=== PATIENT | male | born 1945 | race Caucasian/White ===

== ENCOUNTER → 2023-06-04 07:31 | Outpatient (REF) | payer MEDICARE, OTHER, SELFPAY ==
[2023-06-04 09:04] LABS: ALT (SGPT) 29 U/L (0-50); AST (SGOT) 30 U/L (17-59); Albumin 3.8 g/dl (3.5-5.0); Alkaline Phosphatase 100 U/L (38-126); Blood Urea Nitrogen 21 mg/dl (9-20); Calcium 9.2 mg/dl (8.4-10.2); Carbon Dioxide 27 mmol/L (22-30); Chloride 105 mmol/L (98-107); Glucose 105 mg/dl (70-99); HDL Cholesterol 63 mg/dl; LDL Cholesterol, Calculated 60 mg/dl; Potassium 4.3 mmol/L (3.5-5.1); Sodium 136 mmol/L (135-145); Total Bilirubin 0.8 mg/dl (0.2-1.3); Total Cholesterol 144 mg/dl (50-199); Total Protein 6.6 g/dl (6.3-8.2); Triglyceride 107 mg/dl (10-149); Very Low Density Lipoprotein 21 mg/dl (0-30); eGFR > 60.00
== END ==
LOC: REG 07:31
PROVIDERS: ATTENDING PHYSICIAN Nuclear Medicine Nuclear Cardiology; FAMILY PHYSICIAN Family Medicine
DX: E78.00 Pure hypercholesterolemia, unspecified (principal)
CPT/HCPCS: 36415; 80053; 80061

== ENCOUNTER → 2023-06-12 17:11 | Outpatient (REF) | payer MEDICARE, OTHER, SELFPAY | LOC: RAD 17:11 | PROVIDERS: ATTENDING PHYSICIAN Family Medicine | DX: J69.0 Pneumonitis due to inhalation of food and vomit (principal) | CPT/HCPCS: 71046 ==

== ENCOUNTER → 2023-07-02 07:38 | Outpatient (REF) | payer MEDICARE, OTHER, SELFPAY | LOC: DHCBC/DCA 07:38 | PROVIDERS: ATTENDING PHYSICIAN Nuclear Medicine Nuclear Cardiology; FAMILY PHYSICIAN Family Medicine | DX: I25.10 Atherosclerotic heart disease of native coronary artery without angina pectoris (principal); R07.89 Other chest pain; Z95.5 Presence of coronary angioplasty implant and graft; E78.00 Pure hypercholesterolemia, unspecified | CPT/HCPCS: 78452; 93017; A9500 ==

== ENCOUNTER → 2023-07-06 06:36 | Day surgery (SDC) | payer MEDICARE, OTHER, SELFPAY | LOC: GI 06:36 | PROVIDERS: ATTENDING PHYSICIAN Internal Medicine Gastroenterology; FAMILY PHYSICIAN Family Medicine | DX: Z12.11 Encounter for screening for malignant neoplasm of colon (principal); Z86.010 Personal history of colon polyps; R19.4 Change in bowel habit; K64.8 Other hemorrhoids; D12.3 Benign neoplasm of transverse colon | CPT/HCPCS: 45380; 88305 ==

== ENCOUNTER → 2023-07-23 10:58 | Outpatient (REF) | payer MEDICARE, OTHER, SELFPAY | LOC: DHCBS HW 10:58 | PROVIDERS: ATTENDING PHYSICIAN Nuclear Medicine Nuclear Cardiology; FAMILY PHYSICIAN Family Medicine | DX: I25.10 Atherosclerotic heart disease of native coronary artery without angina pectoris (principal); R07.89 Other chest pain; Z95.5 Presence of coronary angioplasty implant and graft; E78.00 Pure hypercholesterolemia, unspecified | CPT/HCPCS: 93306 ==

== ENCOUNTER → 2024-01-30 07:42 | Outpatient (REF) | payer MEDICARE, OTHER, SELFPAY ==
[2024-01-30 09:17] LABS: ALT (SGPT) 33 U/L (0-50); AST (SGOT) 29 U/L (17-59); Albumin 4.1 g/dl (3.5-5.0); Alkaline Phosphatase 89 U/L (38-126); Blood Urea Nitrogen 26 mg/dl (9-20); Calcium 9.6 mg/dl (8.4-10.2); Carbon Dioxide 31 mmol/L (22-30); Chloride 106 mmol/L (98-107); Glucose 113 mg/dl (70-99); HDL Cholesterol 65 mg/dl; LDL Cholesterol, Calculated 65 mg/dl; Potassium 4.8 mmol/L (3.5-5.1); Sodium 146 mmol/L (135-145); Total Bilirubin 0.8 mg/dl (0.2-1.3); Total Cholesterol 150 mg/dl (50-199); Total Protein 6.8 g/dl (6.3-8.2); Triglyceride 104 mg/dl (10-149); Very Low Density Lipoprotein 20 mg/dl (0-30); eGFR > 60.00
== END ==
LOC: REG 07:42
PROVIDERS: ATTENDING PHYSICIAN Nuclear Medicine Nuclear Cardiology; FAMILY PHYSICIAN Family Medicine
DX: I70.0 Atherosclerosis of aorta (principal); E78.00 Pure hypercholesterolemia, unspecified
CPT/HCPCS: 36415; 80053; 80061

== ENCOUNTER 2024-05-21 06:24 | Day surgery (SDC) | payer MEDICARE, OTHER, SELFPAY | END 2024-05-21 09:48 | disposition home or self-care (01) | LOC: GI 06:24 | PROVIDERS: ATTENDING PHYSICIAN Internal Medicine Gastroenterology; FAMILY PHYSICIAN Family Medicine | DX: K22.70 Barrett's esophagus without dysplasia (principal); K44.9 Diaphragmatic hernia without obstruction or gangrene | CPT/HCPCS: 43239; 88305 ==

== ENCOUNTER → 2024-06-30 10:16 | Outpatient (REF) | payer MEDICARE, OTHER, SELFPAY ==
[2024-06-30 11:24] LABS: % Basophils 0.6 % (0-2); % Eosinophils 7.1 % (0-6); % Immature Granulocytes 0.3 % (0-0.5); % Lymphocytes 26.1 % (20.5-51.1); % Monocytes 13.2 % (1.7-9.3); % Neutrophils 52.7 % (42.2-75.2); Absolute Eosinophils 0.5 10^3/uL (0-0.7); Absolute Lymphocytes 1.8 10^3/uL (1.2-3.4); Absolute Monocytes 0.9 10^3/uL (0.1-0.6); Absolute Neutrophils 3.6 10^3/uL (1.4-6.5); Hematocrit 44.9 % (39.0-52.0); Hemoglobin 15.1 g/dL (13.0-18.0); Mean Corp Hgb Conc. 33.6 g/dL (33.0-37.0); Mean Corpuscular Hgb 31.4 pg (27.0-31.0); Mean Corpuscular Volume 93.3 fL (80.0-94.0); Mean Platelet Volume 9.9 fL (7.4-10.4); Nucleated Red Blood Cells % 0 % (-); Platelet Count 161 10^3/uL (130-400); Red Blood Cell Count 4.81 10^6/uL (4.70-6.10); Red Cell Dist. Width 12.6 % (11.5-14.5); White Blood Cell Count 6.7 10^3/uL (4.8-10.8)
[2024-06-30 12:40] LABS: PSA, Total - Screen 0.73 ng/ml (0.0-4.0)
[2024-06-30 12:59] LABS: Vitamin B12 497 pg/ml (239-931)
[2024-07-03 01:37] LABS: Vitamin B6 Results 18.9 nmol/L (20.0-125.0)
== END ==
LOC: REG 10:16
PROVIDERS: ATTENDING PHYSICIAN Family Medicine; REFERRING PHYSICIAN Nuclear Medicine Nuclear Cardiology
DX: Z00.00 Encounter for general adult medical examination without abnormal findings (principal); G47.33 Obstructive sleep apnea (adult) (pediatric); I10 Essential (primary) hypertension; K21.9 Gastro-esophageal reflux disease without esophagitis; I70.0 Atherosclerosis of aorta; Z12.5 Encounter for screening for malignant neoplasm of prostate; Z79.899 Other long term (current) drug therapy
CPT/HCPCS: 36415; 82607; 84207; 85025; G0103

== ENCOUNTER → 2024-07-22 07:46 | Outpatient (REF) | payer MEDICARE, OTHER, SELFPAY | LOC: HWRCS 07:46 | PROVIDERS: ATTENDING PHYSICIAN Nuclear Medicine Nuclear Cardiology; FAMILY PHYSICIAN Family Medicine | DX: I10 Essential (primary) hypertension (principal); I70.0 Atherosclerosis of aorta; R07.89 Other chest pain; Z82.49 Family history of ischemic heart disease and other diseases of the circulatory system | CPT/HCPCS: 93306 ==

== ENCOUNTER → 2024-07-25 15:20 | Outpatient (REF) | payer MEDICARE, OTHER, SELFPAY | LOC: RAD 15:20 | PROVIDERS: ATTENDING PHYSICIAN Family Medicine | DX: R07.89 Other chest pain (principal); R06.02 Shortness of breath | CPT/HCPCS: 71260; Q9967 ==

== ENCOUNTER 2024-07-27 05:59 | Inpatient (IN) | payer MEDICARE, OTHER, SELFPAY ==
[2024-07-27] VITALS (20 sets, daily range): BP systolic 130–172; BP diastolic 67–96; BMI 30.3; BMI 28.6
[2024-07-27 04:01] LABS: % Basophils 0.6 % (0-2); % Eosinophils 4.8 % (0-6); % Immature Granulocytes 0.3 % (0-0.5); % Lymphocytes 28.1 % (20.5-51.1); % Monocytes 11.1 % (1.7-9.3); % Neutrophils 55.1 % (42.2-75.2); Absolute Eosinophils 0.4 10^3/uL (0-0.7); Absolute Monocytes 0.8 10^3/uL (0.1-0.6); Hematocrit 42.5 % (39.0-52.0); Hemoglobin 15.1 g/dL (13.0-18.0); Mean Corp Hgb Conc. 35.5 g/dL (33.0-37.0); Mean Corpuscular Hgb 31.8 pg (27.0-31.0); Mean Corpuscular Volume 89.5 fL (80.0-94.0); Mean Platelet Volume 9.7 fL (7.4-10.4); Nucleated Red Blood Cells % 0 % (-); Platelet Count 157 10^3/uL (130-400); Red Blood Cell Count 4.75 10^6/uL (4.70-6.10); White Blood Cell Count 7.2 10^3/uL (4.8-10.8)
--- NOTE | 2024-07-27 04:13 | ED.GENMED ---
History of Present Illness
General
Chief Complaint: Chest Pain
Source: patient
Exam Limitations: none
Time Seen by Provider: 07/27/24 04:01
History of Present Illness
History of Present Illness:
See MDM
Past History
Past History
ED Past Medical History: CAD, GERD (Eyelid hernia, Aquino's esophagus), HTN, Hypercholesterolemia, Other (Kidney stones) and Other (Obstructive sleep apnea)
ED Past Surgical History: Cardiac (PTCA 05/24/17, 05/25/17), Orthopedic (Left hand trauma repair) and Urological (Lithotripsy for kidney stone removal)
Social History
Tobacco: Former smoker
Alcohol: Occasional
Personal:
Living: with family
Employment: Employed
Family History
Family History: Hypertension and CAD
Phy Exam
Physical Exam
Physical Exam:
See MDM
Scores
Heart Score for Chest Pain Patients
STEMI patient?: No
History: Highly Suspicious
ECG: Nonspecific Repolarization
Age: >/= 65 years
Risk Factors: >/= 3 Risk Factors or History of CAD
Troponin: >1 - <3 x Normal Limit
Heart Score for Chest Pain Patients: 8
Heart Score Risk: 72.7 % MACE over next 6 weeks
Course
Orders/Labs/Results
Orders:
Orders
07/27/24 03:18
Electrocardiogram (*1) Urgent
Reason for Study: Chest Pain
EKG- Treatment ONCE
07/27/24 03:46
CMP [Comprehensive Metabolic Panel] Urgent
Complete Blood Count/With Diff Urgent
Troponin I Urgent
07/27/24 04:13
Consult Cardiology [CARDIOLOGY CONSULT] Urgent
Consulting Provider: Manish Gabriel
Was physician already notified: Yes
07/27/24 04:32
EKG- Treatment ONCE
07/27/24 04:45
Aspirin Chewable [Low Strength Aspirin] 324 mg PO NOW STA
07/27/24 06:45
Electrocardiogram (*1) Urgent
Reason for Study: Chest Pain
Troponin I Urgent
Abnormal Lab Results
07/27/24
03:46
MCH 31.8 H pg
(27.0-31.0)
Absolute Monos (auto) 0.8 H 10^3/uL
(0.1-0.6)
Monocytes % 11.1 H %
(1.7-9.3)
Chloride 108 H mmol/L
(98-107)
BUN 21 H mg/dl
(9-20)
Glucose 118 H mg/dl
(70-99)
Alkaline Phosphatase 140 H U/L
(38-126)
Troponin I 0.081 H* ng/ml
07/27/24 03:46
07/27/24 03:46
Vital Signs
Initial and Last Documented VS:
Initial Vital Signs
Pulse Resp BP Pulse Ox
59 10 159/75 97
07/27/24 03:31 07/27/24 03:31 07/27/24 03:31 07/27/24 03:31
Last Documented Vital Signs
Pulse Resp BP Pulse Ox
49 16 137/70 96
07/27/24 04:20 07/27/24 04:20 07/27/24 04:20 07/27/24 04:20
MDM/Problems Addressed
Differential Diagnosis Includes:
HPI and MDM Narrative:
79-year-old male presenting for evaluation of exertional dyspnea. He noted the symptoms when he woke up this morning. Patient states he woke up to go to the bathroom and developed shortness of breath for several hours. He states this has been
progressive over the past several months. He does follow with cardiology and has had outpatient testing performed. He is due for stress test today.
Will discuss case with cardiology
Physical exam
General: Well appearing and non-toxic
HEENT: protecting airway
Neck: appears supple
CV: No evidence of cyanosis. Regular rate and rhythm
Resp: No accessory muscle use
Abd: Non-distended
Extremities: No deformities
Neuro: alert
Psych: Normal affect
Skin: Intact
Problems Addressed including Acute and Chronic Conditions affecting care:
1. Exertional dyspnea
Acuity: acute
Prognosis: stable
Details: Will obtain troponin. It appears patient has been having the same symptoms for weeks but it is intermittent
Updates
Case discussed with cardiology. We discussed admitting for cardiology evaluation and possible cath or going home for his scheduled stress test on Sunday
Troponin found to be elevated. Will give aspirin and admit
Differential Diagnosis (but not limited to): Coronary artery disease, ACS
Testing considered: Chest x-ray
Drug therapy (if applicable): OTC meds, please see d/c instruction regarding Rx drugs
Amount and/or Complexity of Data Reviewed
Clinical info obtained from: Patient
External data reviewed: N/A
Labs I independently reviewed (but not limited to): Elevated troponin
Radiology: N/A
Pulse Ox: not hypoxic
EKG independently reviewed: Sinus rhythm, left axis, no STEMI
Ventilation Mechanic: Sinus rhythm
Critical Care: N/A
Risk of Complication:
Social Determinants of health: Good social support
Discussed with other providers: Hospitalist, opener verifier packer customs
Escalation of Care includes Admit/Obs: Given concern for NSTEMI, will admit
Occasional wrong word or 'sound a like' substitutions may have occurred due to the inherent limitations of voice recognition software. Read the chart carefully and recognize, using context, where substitutions have occurred.
*Critical Care Note
Total Time (30-74mins, 75-104mins- exclusive of procedures): Not Applicable
ED Attending Note
-
Portions of this chart may have been created with voice recognition software.� Occasional wrong word or��sound alike� substitutions may have occurred due to the inherent limitations of voice recognition software.
Discharge Plan
Departure
Patient Disposition: Admit
Date of Disposition: 07/27/24
Time of Disposition: 04:48
Admit to: Telemetry
Presentation/result/management discussed w/ accepting MD/DO: Hospitalist
Discharge Problem:
Non-ST elevation [place] (NSTEMI)
Prescriptions:
No Action
aspirin [Aspir-Low] 81 MG tablet,delayed release (DR/EC)
81 mg PO DAILY
atorvastatin 80 MG tablet
80 mg PO QPM Qty: 30 3RF
metoprolol succinate 50 MG tablet extended release 24 hr
25 mg PO DAILY
clopidogrel 75 MG tablet
75 mg PO DAILY Qty: 90 3RF
pantoprazole 40 MG tablet,delayed release (DR/EC)
40 mg PO DAILY Qty: 90 3RF
Referrals:
Osmany Silva MD [Family Provider] -
Interventions
Interventions:
ED- Cardiac Assessment Last Done: 07/27/24 04:38
Discharge Date and Time
Print Language: KENYAN
[2024-07-27 04:18] LABS: ALT (SGPT) 35 U/L (0-50); AST (SGOT) 31 U/L (17-59); Albumin 3.8 g/dl (3.5-5.0); Alkaline Phosphatase 140 U/L (38-126); Blood Urea Nitrogen 21 mg/dl (9-20); Calcium 9.6 mg/dl (8.4-10.2); Carbon Dioxide 27 mmol/L (22-30); Chloride 108 mmol/L (98-107); Glucose 118 mg/dl (70-99); Potassium 4.3 mmol/L (3.5-5.1); Sodium 143 mmol/L (135-145); Total Bilirubin 0.6 mg/dl (0.2-1.3); Total Protein 6.5 g/dl (6.3-8.2); eGFR > 60.00
[2024-07-27 04:29] LABS: Troponin I 0.081 ng/ml
[2024-07-27] MEDS: LOW STRENGTH ASPIRIN 324 MG PO (05:07)
--- NOTE | 2024-07-27 05:32 | HPS.HSE ---
Family Physician
-
Family Physician: Osmany Silva
Chief Complaint
-
Chest pain
History of Present Illness
Patient is a 79y M with PMH significant for ASCVD, hypertension and GERD / Aquino's esophagus who presents to ED complaining of chest pain. Patient states that he has been having exertional chest pain since March. He reports pain that
occurs with exertion - but not consistently. He has been followed by his outpatient Surgical Services Coordinator and is the process of evaluation. He completed an Echo on 07/22 with was unremarkable. He had a Chest CT done on 07/25 that has not yet been interpreted.
He is scheduled for a stress test on Sunday.
Patient woke this evening around midnight with urge to urinate. He ambulated to the bathroom and back and developed substernal chest pain. This pain radiated into his jaw. He had diaphoresis. No SOB. No N/V.
His pain persisted for about 3 hours ultimately prompting him to present to the ED for further evaluation.
Patient notes that his symptoms have steadily been increasing in frequency and severity over the past 3 months.
At the time of my examination, patient is resting comfortably. He denies any current 'chest pain', but is complaining of 'indigestion'.
Medical History
Past Medical History
Past Medical History: Reports Other
Additional Past Medical History:
ASCVD
Hypertension
Nephrolithiasis
GERD / Aquino's Esophagus
IBS
Skin Cancer
Atopic Dermatitis
Past Surgical History: Reports Other
Additional Past Surgical History:
PTCA with Stents (Two in 2018, two in 2019)
Mohs Surgery
Left Finger Surgery
Social History
Tobacco: Former Smoker (Quit smoking in 1991. Approx 30 pack years total use.)
Alcohol: Occasional (Rare)
Drug: None
Personal:
Living: With Family
Family History
Family History: Other (Father: CAD Brother: CVA, AAA)
Allergies / Home Medications
Allergies reflects when Allergies were last updated in Dress Code.
Home Medications with original date entered in Dress Code
Allergy/Medication List:
Allergies
Allergy/AdvReac Type Severity Reaction Status Date / Time
Cephalosporins Allergy Rash Verified 07/27/24 03:22
penicillin G Allergy Rash Verified 07/27/24 03:22
Penicillins Allergy Rash Verified 07/27/24 03:22
Home Medications
atorvastatin 80 mg tablet 80 mg PO QPM #30 tabs 05/24/17
metoprolol succinate 50 mg tablet,extended release 24 hr 37.5 mg PO DAILY 03/01/20
pantoprazole 40 mg tablet,delayed release 40 mg PO DAILY #90 tabs 03/01/20
Bifidobacterium longum 10 million cell capsule (Align (B.longum)) cell PO 07/27/24
aspirin 81 mg capsule 81 mg PO DAILY 07/27/24
vitamin B complex 1 cap PO DAILY 07/27/24
Review of Systems
-
History Source: Patient
A 12 point ROS was completed and negative except as noted: Yes
Constitutional: Denies Fever or Chills
Respiratory: Denies Cough or Trouble Breathing
Cardiac: Reports Chest Pain; Denies Palpitations
Abdomen/GI: Denies Abdominal Pain, Nausea, Vomiting or Diarrhea
: Denies Dysuria or Frequency
Musculoskeletal: Denies Joint Pain or Edema
Neurological: Denies Dizzy or Headache
Physical Exam
Vital Signs
Vital Signs
Pulse Resp BP Pulse Ox
51 13 146/72 97
07/27/24 05:00 07/27/24 05:00 07/27/24 05:00 07/27/24 04:45
Physical Exam
General: Other (79y M in no acute distress.)
HEENT: Moist mucous membranes and PERRLA
Respiratory: Clear; No Wheezes, Rales or Rhonchi
Cardiac: S1/S2 and Regular Rhythm; No Murmur
GI: Soft, Non Tender, Non Distended and Normal Bowel Sounds
Musculoskeletal: No Clubbing, No Cyanosis and No Edema
Neuro: AO x 3
Laboratory Results
-
07/27/24 03:46
Laboratory Results
Total Bilirubin 0.6 mg/dl (0.2-1.3) 07/27/24 03:46
AST 31 U/L (17-59) 07/27/24 03:46
ALT 35 U/L (0-50) 07/27/24 03:46
Alkaline Phosphatase 140 U/L (38-126) H 07/27/24 03:46
Troponin I 0.081 ng/ml H* 07/27/24 03:46
Impression/Plan
-
A/P: Patient is a 79y M with PMH significant for ASCVD, hypertension and GERD who presents to ED complaining of chest pain.
ACS
ASCVD
- Admit for further evaluation and treatment.
- Patient with very suspicious story with progressing exertional chest discomfort culminating in this evening's symptoms.
- EKG unremarkable. Initial troponin 0.081.
- Begin IV heparin for now.
- Continue ASA, statin, metoprolol.
- Follow troponin to peak.
- Cardiology evaluation for additional recommendations.
- Follow for any new / recurrent symptoms.
Benign Hypertension
- Stable. Continue metoprolol.
GERD / Aquino's Esophagus
- Recent EGD was stable.
- Continue daily PPI.
DVT Prophylaxis: On IV Heparin
Code Status: Full
[2024-07-27 06:21] LABS: Hematocrit 41.4 % (39.0-52.0); Hemoglobin 14.5 g/dL (13.0-18.0); Mean Corpuscular Hgb 32.4 pg (27.0-31.0); Mean Corpuscular Volume 92.6 fL (80.0-94.0); Mean Platelet Volume 9.9 fL (7.4-10.4); Platelet Count 149 10^3/uL (130-400); Red Blood Cell Count 4.47 10^6/uL (4.70-6.10); Red Cell Dist. Width 12.2 % (11.5-14.5); White Blood Cell Count 6.9 10^3/uL (4.8-10.8)
[2024-07-27 06:25] LABS: APTT 25.9 Sec (23.4-35.0)
[2024-07-27] MEDS: TUMS EX (EXTRA STRENGTH) CHEWABLE TABLET 300 MG PO (06:38)
[2024-07-27 06:47] LABS: Troponin I 0.305 ng/ml
[2024-07-27] MEDS: HEPARIN 4000 UNITS IV (06:56)
[2024-07-27] MEDS: HEPARIN 25000 UNITS/250 ML IV (06:57)
--- NOTE | 2024-07-27 08:40 | PTCARENOTE ---
Pt received as admit from ED. AAOx3. Able to ambulate independently in room. Sinus Froylan on tele, HRs 50s. SpO2 97% on room air. Heparin infusing at 1000 units/hr, PTT due at 1300. Pt resting in bed, call bray in reach. at bedside.
[2024-07-27] MEDS: PROTONIX 40 MG PO (08:54)
[2024-07-27] MEDS: TOPROL XL PO ×2 (09:10→09:11)
--- NOTE | 2024-07-27 11:10 | CON.CAR ---
Consultation
Consultation Request
Date/Time Consultation Requested: 07/27/2024 4: 00
Date/Time Consultation Performed: 07/27/24 8: 00
Requesting Provider: Justen
Performing Provider: Harvey
Reason for Consultation: Chest pain
Medical History
-
Chief Complaint: Chest pain
History of Present Illness:
Juan C has a history of CAD status post RCA stent in February 2020, PCI of circumflex and RCA in May 2017, hypertension hypercholesterolemia, GERD, prostate cancer. He was seen in our office in June 2024 with complaints of chest discomfort with
exertion. He was set up for exercise sestamibi stress test which was performed on 07/28. However he had worsening chest discomfort came to the ER. He denies chest pain at the present time. Repeat troponin was 0.3.
Past Medical History
Past Medical History: Other (See HPI, atopic dermatitis, hiatal hernia, nephrolithiasis status post lithotripsy, left hand trauma 2004, GERD with Aquino's esophagus, DJD, irritable bowel syndrome, atherosclerosis of aorta)
Past Surgical History: Other (4 stents, oral surgery in 2021, Mohs surgery, finger surgery from tablesaw)
Social History
Tobacco: Former Smoker
Alcohol: Occasional
Drug: None
Personal:
Living: With Family
Employment: Retired
Family History
Family History: Other (Father at 88 of coronary disease)
Allergies / Home Medications
Allergy/AdvReac Type Severity Reaction Status Date / Time
Cephalosporins Allergy Rash Verified 07/27/24 03:22
penicillin G Allergy Rash Verified 07/27/24 03:22
Penicillins Allergy Rash Verified 07/27/24 03:22
�Medication �Instructions �Recorded �Confirmed �Type
atorvastatin 80 mg tablet 80 mg PO QPM #30 tabs 05/24/17 07/27/24 Rx
metoprolol succinate 50 mg 37.5 mg PO DAILY 03/01/20 07/27/24 History
tablet,extended release 24 hr
pantoprazole 40 mg tablet,delayed 40 mg PO DAILY #90 tabs 03/01/20 07/27/24 Rx
release
Bifidobacterium longum 10 million cell PO 07/27/24 History
cell capsule (Align (B.longum))
aspirin 81 mg capsule 81 mg PO DAILY 07/27/24 07/27/24 History
vitamin B complex 1 cap PO DAILY 07/27/24 07/27/24 History
Review of Systems
-
History Source: Patient
All other systems: Negative unless noted
Constitutional: No Symptoms
EENT: No Symptoms
Respiratory: No Symptoms
Cardiac: Chest Pain
Abdomen/GI: No Symptoms
: No Symptoms
Musculoskeletal: No Symptoms
Skin: No Symptoms
Neurological: No Symptoms
Endocrine: No Symptoms
Hematologic/Lymphatic: No Symptoms
Physical Exam
Vital Signs
Temp Pulse Resp BP Pulse Ox
98.1 F 52 20 152/85 97
07/27/24 08:23 07/27/24 09:11 07/27/24 08:23 07/27/24 08:00 07/27/24 08:23
General: Well developed, well nourished in NAD.
Neck: Supple, no JVD, HJR, carotids +2 B/L, no bruits bilaterally.
Heart: Non displaced PMI, RRR, no murmurs, No S3, S4, no rubs.
Lungs: Clear to auscultation bilaterally, no wheeze, rhonchi, rubs bilaterally,
normal expiratory phase.
Abdomen: Normal bowel sounds, soft, non-tender, non-distended.
Extremities: No clubbing, cyanosis or edema bilaterally.
Neuro: Grossly nonfocal, awake, alert and oriented x3.
Lab Results
07/27/24 06:09
07/27/24 03:46
Troponin I 0.305 ng/ml H* D 07/27/24 06:09
Impression / Plan
-
Impression:
Non-STEMI with troponin of 0.3
History of CAD status post RCA stent in 2019, circumflex and RCA stenting 2017
Hypercholesterolemia
Hypertension
GERD
History of prostate cancer
Echocardiogram 07/22/2024: Ejection fraction 66%, aortic sclerosis
Plan:
He has had progressive worsening chest discomfort with exertion. He was scheduled for outpatient stress test on 07/28 but came to the ER with worsening chest pain. He is ruled in for non-STEMI with troponin 0.3.
He is currently pain-free on IV heparin
Will plan on cardiac catheterization on Friday 07/28
Discussed with primary service and interventional cardiology as well as at bedside
Data Reviewed
-
EKG: Tracing Personally Visualized and interpreted
Radiology: Report Reviewed by me
Medical Tests (Nuc Med, Echo etc): Report Reviewed by me
Labs: Labs Reviewed by me
Old Records: Reviewed
--- NOTE | 2024-07-27 11:16 | W.PN.UPDATE ---
Update Note
Progress Note Update
Seen by Dr. Aguirre this morning.
Admitted with chest pain with clinical suspicion of unstable angina.
Started IV heparin.
Currently chest pain-free and not short of breath.
Discussed with cardiology-plan for cardiac authorization tomorrow.
[2024-07-27] MEDS: NITROSTAT (SUBLINGUAL) 0.4 MG SL (11:43)
[2024-07-27 13:07] LABS: APTT 52.9 Sec (23.4-35.0)
[2024-07-27 14:33] LABS: Glycohemoglobin (HgbA1c) 5.3 % (4.0-5.6)
[2024-07-27] MEDS: LIPITOR 80 MG PO (17:14)
[2024-07-27 19:41] LABS: APTT 60.9 Sec (23.4-35.0)
--- NOTE | 2024-07-27 23:25 | PTCARENOTE ---
Received patient at change of shift. SR on the monitor, HR in the 60s. Heparin running as per protocol. Pt aware of NPO at midnight. No chest pain at this time. No complaints from pt at this time, call bray within reach.
[2024-07-28] VITALS (9 sets, daily range): BP systolic 132–169; BP diastolic 58–98; BMI 28.4
[2024-07-28] MEDS: HEPARIN 25000 UNITS/250 ML IV (02:11)
[2024-07-28 02:53] LABS: Hematocrit 42.2 % (39.0-52.0); Hemoglobin 14.8 g/dL (13.0-18.0); Mean Corp Hgb Conc. 35.1 g/dL (33.0-37.0); Mean Corpuscular Hgb 31.6 pg (27.0-31.0); Mean Corpuscular Volume 90.2 fL (80.0-94.0); Mean Platelet Volume 10.2 fL (7.4-10.4); Platelet Count 157 10^3/uL (130-400); Red Blood Cell Count 4.68 10^6/uL (4.70-6.10); Red Cell Dist. Width 12.3 % (11.5-14.5); White Blood Cell Count 7.9 10^3/uL (4.8-10.8)
[2024-07-28 03:04] LABS: APTT 101.8 Sec (23.4-35.0)
[2024-07-28 03:45] LABS: Blood Urea Nitrogen 18 mg/dl (9-20); Calcium 9.3 mg/dl (8.4-10.2); Carbon Dioxide 26 mmol/L (22-30); Chloride 110 mmol/L (98-107); Estimated Creatinine Clearance 90 ml/min; Glucose 115 mg/dl (70-99); HDL Cholesterol 68 mg/dl; LDL Cholesterol, Calculated 50 mg/dl; Potassium 4.1 mmol/L (3.5-5.1); Sodium 140 mmol/L (135-145); Total Cholesterol 130 mg/dl (50-199); Triglyceride 64 mg/dl (10-149); Very Low Density Lipoprotein 12 mg/dl (0-30); eGFR > 60.00
--- NOTE | 2024-07-28 07:26 | W.PN.HOSP.TC ---
Addendum entered and electronically signed by Cecilia Wilkes MD 07/28/24 16:09:
I saw and evaluated the patient independently. I reviewed the resident�s note and agree with findings and plan as documented by Dr. Centeno.
GENERAL: well developed, well nourished, male in no apparent distress
HEENT: NC/AT
HEART: regular rate and rhythm, +S1, +S2
LUNGS : clear to auscultation bilaterally
ABDOM: soft, nontender, nondistended, + bowel sounds
EXT: no cyanosis, clubbing, or edema
NEUROLOGIC: grossly intact
Acute coronary syndrome with NSTEMI with elevated troponin peak of 1.3 now decreasing to 0.89--apprec cards and agree with cardiac cath--cont asa, toprol XL, high dose statin--Echocardiogram 07/22/2024: Ejection fraction 66%, aortic sclerosis
Essential hypertension--Continue metoprolol, losartan
GERD/Aquino's esophagus--Recent EGD was stable--Continue daily PPI
DVT proph--On heparin IV
code status --Full code
Original Note:
Today's Communication/Plan
-
Cardiac cath today
Assessment / Plan
Assessment / Plan
Impression
Acute coronary syndrome
NSTEMI with elevated troponin
Essential hypertension
GERD/Aquino's esophagus
HX of prostate cancer
Plan
#Acute coronary syndrome
#NSTEMI with elevated troponin of 0.83
Scheduled for cardiac cath today
Appreciate cardiology input
Medical management with aspirin 81, Toprol-XL 25 mg PO, high-dose atorvastatin
Patient is currently pain-free, denies shortness of breath, palpitations
Follow-up for any new/recurrent symptoms
Trend troponin levels
Echocardiogram 07/22/2024: Ejection fraction 66%, aortic sclerosis
Essential hypertension
Continue metoprolol, losartan
GERD/Aquino's esophagus
Recent EGD was stable
Continue daily PPI
DVT prophylaxis: On heparin IV
Full code
Anticipated Discharge: > 48 hours
Subjective/Interval History
-
Date of Service: July 28, 2024
Objective Data
-
Labs:
Laboratory Results
07/27/24 07/28/24 07/28/24
19:20 02:32 08:45
WBC 7.9
Hgb 14.8
Hct 42.2
Plt Count 157
APTT 60.9 H 101.8 H Pending
Sodium 140
Potassium 4.1
Chloride 110 H
Carbon Dioxide 26
BUN 18
Creatinine 0.8
Glucose 115 H
Calcium 9.3
Vital Signs:
Vital Signs
Temp Pulse Resp BP Pulse Ox
98.1 F 60 18 132/77 97
07/28/24 02:36 07/28/24 02:30 07/28/24 02:36 07/28/24 02:17 07/28/24 02:36
I&O
07/27/24 07/28/24 07/29/24
06:59 06:59 06:59
Intake Total 960 / 960
Balance 960 / 960
Review of Systems
-
History Source: Patient
All other systems: Reviewed and negative
Physical Exam
-
General: No Apparent Distress and Comfortable
HEENT: Normocephalic and Atraumatic
Respiratory: Clear to Auscultation
Cardiac: Regular Rhythm and S1/S2
GI: Soft, Nontender and Nondistended
Musculoskeletal: No Edema
Neuro: AO x 3
Psych: Calm
Data Reviewed
-
Labs: Labs Reviewed by me and Discussed with Physician
[2024-07-28] MEDS: LOW STRENGTH ASPIRIN 81 MG PO (08:43)
[2024-07-28] MEDS: PROTONIX 40 MG PO (08:43)
[2024-07-28] MEDS: TOPROL XL 25 MG PO (08:43)
[2024-07-28] MEDS: TOPROL XL 12.5 MG PO (08:43)
[2024-07-28 09:27] LABS: APTT 109.4 Sec (23.4-35.0)
--- NOTE | 2024-07-28 12:42 | PTCARENOTE ---
assumed care at 0700. Heparin infusing at 1400units/hr. SB HR 50-60's, BP 147/93. Denies chest pain or shortness of breath. Family at bedside
--- NOTE | 2024-07-28 13:12 | CM ---
Chart reviewed. Patient is independent of ADLS, lives with his SO in a 2 STH, 2 ART, 0 DME. Plan is for the patient to return home. CM to follow
--- NOTE | 2024-07-28 13:42 | PTCARENOTE ---
Report sent to the oven laborer, patient voided, IV capped.
[2024-07-28 14:36] LABS: ACT-LR - POC 334 Seconds (116-155)
[2024-07-28 15:00] LABS: ACT-LR - POC 306 Seconds (116-155)
--- NOTE | 2024-07-28 15:45 | ITS.CL.CATH ---
Heel Cutter - Catheterization
Cardiac Catheterization
Procedure Report:
LEFT HEART CATH AND CORONARY INTERVENTION
Date of Procedure: July 28, 2024
Referring: Dr. Manish Gabriel
PROCEDURES:
1. Left heart catheterization with coronary angiography
2. Successful stenting of focal in-stent restenosis within the mid-distal circumflex stent with placement of a 3.5 x 18 mm [place] stent that was implanted at nominal pressures and postdilated with a 3.5 mm noncompliant balloon
INDICATION: This is a 79-year-old gentleman with a prior history of coronary artery disease. He presented in May 2017 with complaints of substernal chest tightness and was found to have a high-grade stenosis in the mid circumflex which
underwent successful stenting with a 3.0 x 24 mm Promus stent that was implanted at nominal pressures and postdilated with a 3.25 mm noncompliant balloon. He experienced some more chest discomfort and the following day return for stenting of the
mid right coronary artery with placement of a 3.0 x 32 mm Synergy stent. He did well for several years but returned in February 2020 with complaints of substernal chest pressure and underwent successful stenting of the distal right coronary artery
with a 3.0 x 12 mm Xience stent in the proximal right coronary artery with a 3.0 x 18 mm Xience stent.
He again did well until recently when he developed recurring chest discomfort and presented to [facility] where he ruled in for non-ST segment elevation myocardial infarction with peak troponin of 1.35 ng/mL. He is now referred for
coronary angiography.
ACCESS: Right radial artery, 6 [place] sheath
HEMODYNAMICS (mmHg):
AO (s/d, m) : 129/74, 98
LV (s/d) : 149/13
LVEDP : 28
CORONARY FINDINGS
Dominance: Right
LEFT MAIN: Normal
LEFT ANTERIOR DESCENDING: LAD arises normally from the left main and runs in the anterior interventricular groove. The LAD tapers to a small caliber vessel as it approaches the but does not wraparound the apex. A single bifurcating diagonal branch
arises from the mid LAD and supplies a vascular distribution similar in size to the LAD. There are diffuse but nonfocal luminal irregularities throughout the LAD.
CIRCUMFLEX: There circumflex arises normally from the left main and has a stable 40-50% stenosis proximally. The stent in the mid circumflex has a focal 95% segment of restenosis in the mid to distal portion of the stent. The circumflex supplies a
single large obtuse marginal branch that has a 50% stenosis beyond the stented segment and bifurcates distally.
RIGHT CORONARY: The right coronary artery is a dominant vessel. The proximal, mid, and distal stented segments are all widely patent. The PDA is widely patent. The posterolateral branch is patent.
VENTRICULOGRAPHY: Not done
ANGIOPLASTY PROCEDURE DETAIL: Upon review of the diagnostic catheterization films the decision was made to proceed with percutaneous revascularization of the in-stent restenosis within the mid to distal portion of the circumflex stent. Intravenous
heparin was administered and the ACT was monitored throughout the procedure. A 180 mg loading dose of ticagrelor was given at the conclusion of the interventional procedure.
The origin of the left main was cannulated with a 6 [place] EBU 3.5 guiding catheter and a BMW guidewire crossed the in-stent restenosis segment and was advanced to the distal vessel. Balloon predilation was performed with a 2.25 mm balloon and was
followed by placement of a 3.5 x 18 mm Praneeth stent that was implanted at nominal pressures and postdilated with a 3.5 mm noncompliant balloon with a nice angiographic result
SEDATION: 58 minutes of procedural sedation was utilized. An independent medical billing instructor was present to assist with and help manage the patient's level of consciousness and physiologic status
RADIATION SUMMARY: Fluoro Time (min): 8.8, Dose (mGy): 798, DAP (Gy.cm2) : 37.9
CONCLUSIONS
1. Successful stenting of focal in-stent restenosis in the mid to distal circumflex stent that was implanted in May 2017. The stent was predilated then stented with a 3.5 x 18 mm Praneeth stent that was implanted at nominal pressures and
postdilated to high pressures with a 3.5 mm noncompliant balloon
2. There are 3 stents in the right coronary artery; a proximal 3.0 x 18 mm, mid 3.0 x 32 mm, and distal 3.0 x 12 mm. The right coronary stents are all widely patent.
3. Stable 40-50% proximal circumflex stenosis
RECOMMENDATIONS
1. Uninterrupted dual antiplatelet therapy for 1 year
2. High intensity statin therapy with goal LDL cholesterol less than 55 mg/dL and blood pressure goal of below 120/80
Copy to: Dr. Jad Hamlin
--- NOTE | 2024-07-28 15:50 | PTCARENOTE ---
Patient received from the slab puller. AO x3. SB on telemetry, deneis pain, right radial band intact with 10 cc of air. Voided in bathroom. Call bray in reach
--- NOTE | 2024-07-28 16:51 | CM ---
Pricing on Brilinta through the patient's [facility] is $468 and then he is responsible for the 31% of cost which is $145. Patient is agreeable. It is in stock at his [facility]
[2024-07-28] MEDS: LIPITOR 80 MG PO (17:04)
--- NOTE | 2024-07-28 22:38 | PTCARENOTE ---
Received patient at change of shift. SR with a BBB on the monitor, HR in the 60s. R radial band removed, dressing CDI, see documentation. No complaints from pt at this time, call bray within reach.
[2024-07-29 04:09] VITALS: BP 128/78
[2024-07-29 04:40] VITALS: BMI 28.2
[2024-07-29 05:15] LABS: % Basophils 0.7 % (0-2); % Eosinophils 3.5 % (0-6); % Immature Granulocytes 0.3 % (0-0.5); % Lymphocytes 19.6 % (20.5-51.1); % Monocytes 12.2 % (1.7-9.3); % Neutrophils 63.7 % (42.2-75.2); Absolute Basophils 0.1 10^3/uL (0-0.2); Absolute Eosinophils 0.3 10^3/uL (0-0.7); Absolute Lymphocytes 1.5 10^3/uL (1.2-3.4); Absolute Monocytes 0.9 10^3/uL (0.1-0.6); Absolute Neutrophils 4.9 10^3/uL (1.4-6.5); Hemoglobin 14.7 g/dL (13.0-18.0); Mean Corpuscular Hgb 31.7 pg (27.0-31.0); Mean Corpuscular Volume 90.5 fL (80.0-94.0); Nucleated Red Blood Cells % 0 % (-); Platelet Count 159 10^3/uL (130-400); Red Blood Cell Count 4.64 10^6/uL (4.70-6.10); Red Cell Dist. Width 12.3 % (11.5-14.5); White Blood Cell Count 7.6 10^3/uL (4.8-10.8)
[2024-07-29 05:25] LABS: Blood Urea Nitrogen 21 mg/dl (9-20); Calcium 9.1 mg/dl (8.4-10.2); Carbon Dioxide 26 mmol/L (22-30); Chloride 109 mmol/L (98-107); Estimated Creatinine Clearance 90 ml/min; Glucose 111 mg/dl (70-99); HDL Cholesterol 56 mg/dl; LDL Cholesterol, Calculated 45 mg/dl; Sodium 139 mmol/L (135-145); Total Cholesterol 122 mg/dl (50-199); Triglyceride 106 mg/dl (10-149); Very Low Density Lipoprotein 21 mg/dl (0-30); eGFR > 60.00
[2024-07-29 07:05] VITALS: BP 108/96
[2024-07-29] MEDS: LOW STRENGTH ASPIRIN 81 MG PO (07:50)
[2024-07-29] MEDS: BRILINTA 90 MG PO (07:50)
[2024-07-29 07:51] VITALS: BP 136/80
[2024-07-29] MEDS: TOPROL XL 25 MG PO (07:51)
[2024-07-29] MEDS: TOPROL XL 12.5 MG PO (07:51)
[2024-07-29] MEDS: PROTONIX 40 MG PO (07:51)
[2024-07-29] MEDS: COZAAR 50 MG PO (07:51)
--- NOTE | 2024-07-29 09:48 | W.PN.CARDCBS ---
Addendum entered and electronically signed by Manish Gabriel MD 07/29/24 10:27:
I saw and examined the patient.
The NURSE PRACTITIONER MANAGER or PA's note was reviewed and I agree with the note.
Comment: General: Well developed, well nourished in NAD.
Neck: Supple, no JVD, HJR, carotids +2 B/L, no bruits bilaterally.
Heart: Non displaced PMI, RRR, no murmurs, No S3, S4, no rubs.
Lungs: Clear to auscultation bilaterally, no wheeze, rhonchi, rubs bilaterally,
normal expiratory phase.
Extremities: No clubbing, cyanosis or edema bilaterally.
Neuro: Grossly nonfocal, awake, alert and oriented x3.
Stable cardiology status for discharge. Follow-up arranged.
Original Note:
Today's Communication / Plan
-
Stable for d/c to home today
Brilinta e-scribed by me
Cardiology f/u arranged
Cardiac rehab following
Impression / Plan
-
PCP: Dr. Silva
Card: Dr. Hamlin
Impression:
Admitted with chest pain 07/27/24
NSTEMI peak Troponin 1.35
CAD
s/p 3.0 x 24 mm Promus stent mid Circ 05/2017
s/p 3.0 x 32 mm Synergy stent to mid RCA 05/2017
s/p 3.0 x 12 mm Xience stent to distal RCA and 3.0 x 18 mm Xience stent prox RCA stents 02/2020
s/p 3.5 x 18 mm [place] KAPIL to focal in-stent restenosis within the previously placed mid-distal circumflex stent 07/28/24
Hypercholesterolemia
Hypertension
GERD
History of prostate cancer
Echocardiogram 07/22/2024: Ejection fraction 66%, aortic sclerosis
Plan:
-Troponin peaked at 1.35. EF preserved by echo.
-Outpatient dose of aspirin has been continued
-Patient is new to Brilinta. Appreciate help of CM on checking cost which will be $145/month. Patient says he can afford Brilinta, will follow up in the office and if Brilinta becomes too expensive then we will change to Plavix.
-Cardiac rehab consulted.
-LDL 45. Outpatient dose of atorvastatin 80 mg daily has been continued.
-Outpatient dose of Toprol XL 37.5 mg daily has been continued
-New to losartan 50 mg daily. Check BMP in 2 weeks as an outpatient.
-Tele reviewed by me 07/29/24 and is SR without arrhythmia.
-D/C to home 07/29/24
HPI: Juan C has a history of CAD status post RCA stent in February 2020, PCI of circumflex and RCA in May 2017, hypertension hypercholesterolemia, GERD, prostate cancer. He was seen in our office in June 2024 with complaints of chest discomfort
with exertion. He was set up for exercise sestamibi stress test which was performed on 07/28. However he had worsening chest discomfort came to the ER. He denies chest pain at the present time. Repeat troponin was 0.3.
Progress Note - Core Maker Helper
Subjective
Date of Service: July 29, 2024
Objective
Labs:
07/29/24 04:23
07/29/24 04:23
Labs
Hgb 14.7 g/dL (13.0-18.0) 07/29/24 04:23
Hct 42.0 % (39.0-52.0) 07/29/24 04:23
Plt Count 159 10^3/uL (130-400) 07/29/24 04:23
APTT Cancelled 07/29/24 06:00
Sodium 139 mmol/L (135-145) 07/29/24 04:23
Potassium 4.0 mmol/L (3.5-5.1) 07/29/24 04:23
BUN 21 mg/dl (9-20) H 07/29/24 04:23
Creatinine 0.8 mg/dL (0.7-1.3) 07/29/24 04:23
Glucose 111 mg/dl (70-99) H 07/29/24 04:23
Troponins
07/27/24 07/27/24 07/27/24
03:46 06:09 07:14
Troponin I 0.081 H* 0.305 H* D Cancelled
07/27/24 07/27/24 07/28/24
12:43 19:20 02:32
Troponin I 1.080 H* D 1.350 H* 0.890 H* D
Vital Signs and I&O:
Vital Signs
Temp Pulse Resp BP Pulse Ox
97.6 F 61 18 136/80 96
07/29/24 07:07 07/29/24 07:51 07/29/24 07:07 07/29/24 07:51 07/29/24 07:07
Vital Signs
Temp Pulse Resp BP Pulse Ox
97.6 F 61 18 136/80 96
07/29/24 07:07 07/29/24 07:51 07/29/24 07:07 07/29/24 07:51 07/29/24 07:07
Intake & Output
07/27/24 07/28/24 07/29/24 07/30/24
06:59 06:59 06:59 06:59
Intake Total 1440 / 1440 980 / 980
Balance 1440 / 1440 980 / 980
Physical Exam
Physical Exam
GEN: AAOx3
HEENT: MMM
LUNGS: RA. No audible wheeze
CV: SR on tele
ABD: ND
EXT: No edema B/L
NEURO: Gross non-focal
SKIN: No rash
--- NOTE | 2024-07-29 10:34 | PTCARENOTE ---
Patient feeling well today. SR/SB on tele, chest pain free. Walking in room. Right radial site CDI. call bray in reach
--- NOTE | 2024-07-29 10:53 | CM ---
Chart reviewed. Patient is independent of ADLS, lives with his significant other in a 2 STH, 2 ART, 0 DME. Plan is for the patient to return home. CM to follow
[2024-07-29 11:16] VITALS: BP 119/74
--- NOTE | 2024-07-29 12:49 | PTCARENOTE ---
Patient discharged to home. Instruction reviewed with patient and spouse they verbalized understanding. IV and telemetry removed
--- NOTE | 2024-07-29 13:00 | W.PN.HOSP.TC ---
Addendum entered and electronically signed by Cecilia Wilkes MD 07/29/24 15:29:
I saw and evaluated the patient independently. I reviewed the resident�s note and agree with findings and plan as documented by Dr. Centeno.
GENERAL: well developed, well nourished, male in no apparent distress
HEENT: NC/AT
HEART: regular rate and rhythm, +S1, +S2
LUNGS : clear to auscultation bilaterally
ABDOM: soft, nontender, nondistended, + bowel sounds
EXT: no cyanosis, clubbing, or edema
NEUROLOGIC: grossly intact
Acute coronary syndrome with NSTEMI with elevated troponin peak of 1.3 now decreasing to 0.89--apprec cards, cardiac cath shows successful stenting of focal in-stent restenosis in the mid to distal circumflex stent that was implanted in May
2018--cont asa, toprol XL, high dose statin--Echocardiogram 07/22/2024: Ejection fraction 66%, aortic sclerosis
Essential hypertension--Continue metoprolol, losartan
GERD/Aquino's esophagus--Recent EGD was stable--Continue daily PPI
DVT proph--On heparin IV
code status --Full code
OK for d/c
Original Note:
Today's Communication/Plan
-
Dispo meds
aspirin 81, Toprol-XL 25 mg PO, high-intensity atorvastatin 80 mg, losartan 50 mg
Plan for discharge today
Follow-up with cardiology outpatient in 2 to 3 weeks
Follow-up with PCP outpatient
Assessment / Plan
Assessment / Plan
Impression
Acute coronary syndrome
NSTEMI with elevated troponin
Essential hypertension
GERD/Aquino's esophagus
HX of prostate cancer
Plan
#Acute coronary syndrome
#NSTEMI with elevated troponin of 0.83
S/p successful percutaneous revascularization of in-stent restenosis in mid to distal circumflex stent. There are 3 stents on RCA which are patent.
Appreciate cardiology input
Medical management with aspirin 81, Toprol-XL 25 mg PO, high-intensity atorvastatin
Start taking losartan 50 mg 1 tablet daily
Echocardiogram 07/22/2024: Ejection fraction 66%, aortic sclerosis
Discharged home today
Cardiac rehab
Essential hypertension
Continue metoprolol, losartan
GERD/Aquino's esophagus
Recent EGD was stable
Continue daily PPI
DVT prophylaxis: On heparin IV
Full code
Anticipated Discharge: Today
Subjective/Interval History
-
Date of Service: July 29, 2024
No overnight events
Objective Data
-
Labs:
Laboratory Results
07/29/24 07/29/24
04:23 06:00
WBC 7.6
Hgb 14.7
Hct 42.0
Plt Count 159
APTT Cancelled
Sodium 139
Potassium 4.0
Chloride 109 H
Carbon Dioxide 26
BUN 21 H
Creatinine 0.8
Glucose 111 H
Calcium 9.1
Vital Signs:
Vital Signs
Temp Pulse Resp BP Pulse Ox
97.9 F 49 18 119/74 93
07/29/24 11:14 07/29/24 11:45 07/29/24 11:14 07/29/24 11:16 07/29/24 11:15
I&O
07/28/24 07/29/24 07/30/24
06:59 06:59 06:59
Intake Total 1440 / 1440 980 / 980 480 / 480
Balance 1440 / 1440 980 / 980 480 / 480
Review of Systems
-
All other systems: Reviewed and negative
Physical Exam
-
General: No Apparent Distress and Comfortable
HEENT: Normocephalic and Atraumatic
Respiratory: Clear to Auscultation
Cardiac: Regular Rhythm and S1/S2
GI: Soft, Nontender and Nondistended
Skin: Warm and Dry
Neuro: AO x 3
Psych: Calm
Data Reviewed
-
Medical Tests (Nuc Med, Echo etc): Report Reviewed by me and Discussed with Physician
Labs: Labs Reviewed by me and Discussed with Physician
--- NOTE | 2024-07-29 16:41 | W.DCSUMMARY ---
Addendum entered and electronically signed by Cecilia Wilkes MD 07/30/24 07:14:
Read, reviewed, and agree. See same day progress note for additional details. Time spent coordinating care, DC planning, review of DC plan of care with resident, transition of care, review of records in EMR, med rec, consults, notes, d/w
consultants, nursing, family, and CM = 32 minutes
Original Note:
Discharge Summary
Discharge Data
Date of Admission: 07/27/24
Date of Discharge: 07/29/24
-
Pending Results: No
Hospital Course
Discharging Physician : Dr Felicity Centeno, Dr Cecilia Wilkes
Disposition : Home
Primary care physician : Dr. Osmany Silva
Principal Discharge diagnosis :
NSTEMI, s/p angioplasty and stent to Left Circumflex artery
Chronic Discharge diagnosis :
Essential hypertension
GERD/Aquino's esophagus
History of prostate cancer
History of CAD
Hospital Course : 79-year-old male presented to the ED with chest pressure radiating to his jaw. Workup done in the ED showed elevated troponin levels of 0.[address] segment elevation on EKG. Cardiology was consulted and patient had
successful percutaneous revascularization of in-stent restenosis in mid to distal left circumflex stent which was implanted in 2017. On the day of discharge he is chest pain-free, no shortness of breath or palpitations. He is discharged on
Brilinta 90 mg twice daily, losartan 50 mg, metoprolol succinate 37.5 mg, atorvastatin 80 mg. Patient was advised to follow-up with cardiology and primary care physician outpatient.
Important imaging findings :
07/25-chest CT :
Coronary artery stents noted. Stable tiny right lung nodules, considered benign. No acute process within the chest.
Procedure findings :
07/28 Cardiac cath:
CONCLUSIONS
1. Successful stenting of focal in-stent restenosis in the mid to distal circumflex stent that was implanted in May 2017. The stent was predilated then stented with a 3.5 x 18 mm [place] stent that was implanted at nominal pressures and
postdilated to high pressures with a 3.5 mm noncompliant balloon
2. There are 3 stents in the right coronary artery; a proximal 3.0 x 18 mm, mid 3.0 x 32 mm, and distal 3.0 x 12 mm. The right coronary stents are all widely patent.
3. Stable 40-50% proximal circumflex stenosis
RECOMMENDATIONS
1. Uninterrupted dual antiplatelet therapy for 1 year
2. High intensity statin therapy with goal LDL cholesterol less than 55 mg/dL and blood pressure goal of below 120/80
Discharge Plan
-
Patient Disposition: Home (Routine Discharge)
Discharge Diagnosis/Procedures: NSTEMI, s/p angioplasty and stent to Left Circumflex artery
Condition: Good
Diet: Low Fat
Activity: Other activity
Driving Restrictions: No driving for 24 hours
Bathing Restrictions: OK to Shower
Blood Work: BMP in 2 weeks
Other Services: Cardiac Rehab
Stand Alone Forms: DC Instructions- Cath/EP Lab
Referrals:
Mary Harmon PA-C [Specified Professional Personl] - 08/12/24 11:00 am (Cardiology followup appointment)
Osmany Silva MD [Family Provider] - in less than 1 week
Additional Discharge Medication Instructions: -Start taking Brilinta 90 mg twice a day plus aspirin to help stent heal in place and stay open.
Start taking Losartan 50 mg one tablet daily. Check BMP (blood work) in 2 weeks.
Continue metoprolol succinate 37.4 mg daily
Continue atorvastatin 80 mg one tablet daily
Follow up with cardiology outpatient
Follow up with PCP outpatient
Prescriptions:
New
Brilinta 90 mg Tablet
90 mg PO BID Qty: 60 6RF
losartan 50 mg Tablet
50 mg PO DAILY Qty: 30 0RF
Continued
atorvastatin 80 MG tablet
80 mg PO QPM Qty: 30 3RF
metoprolol succinate 50 MG tablet extended release 24 hr
37.5 mg PO DAILY
vitamin B complex Capsule
1 cap PO DAILY
aspirin 81 mg Capsule
81 mg PO DAILY
Align (B.longum) 10 million cell Capsule
PO
pantoprazole 40 MG tablet,delayed release (DR/EC)
40 mg PO DAILY Qty: 90 3RF
Discharge Orders:
Discharge Patient (As Directed); Ordered 07/29/24
Ordered By: Felicity Centeno
Care Plan Goals
Care Plan Goals:
Problem: Readiness for enhanced knowledge related to diagnosis and treatment plan
Goal: Understand your diagnosis and treatment plan needs, including medications if applicable.
Instructions: Know your diagnosis, underlying causes and treatment plan options, including medications if applicable. Consult with your health care team to learn about your diagnosis and treatment plan, including medications if applicable.
Discharge Date and Time
Discharge Date/Time: 07/29/24 12:50
Print Language: [id number]
== END 2024-07-29 12:50 | disposition home or self-care (01) | DRG 322 ==
LOC: IVU 05:59
PROVIDERS: Internal Medicine; Internal Medicine Interventional Cardiology; Nurse Practitioner; Student in an Organized Health Care Education/Training Program; ADMITTING PHYSICIAN Hospitalist; ATTENDING PHYSICIAN Internal Medicine; CONSULT PHYSICIAN Internal Medicine Cardiovascular Disease; EMERGENCY PHYSICIAN Student in an Organized Health Care Education/Training Program; FAMILY PHYSICIAN Family Medicine
PROC: B2111ZZ Fluoroscopy of Multiple Coronary Arteries using Low Osmolar Contrast (ICD-10-PCS; 2024-07-28)
PROC: 4A023N7 Measurement of Cardiac Sampling and Pressure, Left Heart, Percutaneous Approach (ICD-10-PCS; 2024-07-28)
PROC: 027034Z Dilation of Coronary Artery, One Artery with Drug-eluting Intraluminal Device, Percutaneous Approach (ICD-10-PCS; 2024-07-28)
DX: I21.4 Non-ST elevation (NSTEMI) myocardial infarction (principal); T82.855A Stenosis of coronary artery stent, initial encounter; Z87.891 Personal history of nicotine dependence; I25.10 Atherosclerotic heart disease of native coronary artery without angina pectoris; Z82.49 Family history of ischemic heart disease and other diseases of the circulatory system; Z79.82 Long term (current) use of aspirin; Z79.899 Other long term (current) drug therapy; I10 Essential (primary) hypertension; K21.9 Gastro-esophageal reflux disease without esophagitis; K22.70 Barrett's esophagus without dysplasia; E78.00 Pure hypercholesterolemia, unspecified; Y83.1 Surgical operation with implant of artificial internal device as the cause of abnormal reaction of the patient, or of later complication, without mention of misadventure at the time of the procedure; Z82.3 Family history of stroke; Z85.46 Personal history of malignant neoplasm of prostate; Z87.442 Personal history of urinary calculi
CPT/HCPCS: 36415; 80048; 80053; 80061; 83036; 84484; 85025; 85027; 85347; 85730; 93005; 93458; 99285; C1725; C1769; C1874; C1887; C1894; C9600; Q9966

== ENCOUNTER → 2024-08-11 08:10 | Outpatient (REF) | payer MEDICARE, OTHER, SELFPAY ==
[2024-08-11 09:47] LABS: Blood Urea Nitrogen 22 mg/dl (9-20); Calcium 9.7 mg/dl (8.4-10.2); Carbon Dioxide 29 mmol/L (22-30); Chloride 107 mmol/L (98-107); Glucose 109 mg/dl (70-99); Potassium 4.9 mmol/L (3.5-5.1); Sodium 142 mmol/L (135-145); eGFR > 60.00
== END ==
LOC: REG 08:10
PROVIDERS: ATTENDING PHYSICIAN Nuclear Medicine Nuclear Cardiology; FAMILY PHYSICIAN Family Medicine
DX: E87.5 Hyperkalemia (principal)
CPT/HCPCS: 36415; 80048

== ENCOUNTER 2024-09-19 09:42 | Outpatient (RCR) | payer MEDICARE, OTHER, SELFPAY | END 2024-09-19 23:59 | disposition home or self-care (01) | LOC: CRHB 09:42 | PROVIDERS: ATTENDING PHYSICIAN Nuclear Medicine Nuclear Cardiology | DX: T82.855A Stenosis of coronary artery stent, initial encounter (principal); I25.10 Atherosclerotic heart disease of native coronary artery without angina pectoris; Z95.5 Presence of coronary angioplasty implant and graft; Y71.2 Prosthetic and other implants, materials and accessory cardiovascular devices associated with adverse incidents | CPT/HCPCS: G0422; G0423 ==

== ENCOUNTER 2024-10-20 08:55 | Outpatient (RCR) | payer MEDICARE, OTHER, SELFPAY | END 2024-10-20 23:59 | disposition home or self-care (01) | LOC: CRHB 08:55 | PROVIDERS: ATTENDING PHYSICIAN Nuclear Medicine Nuclear Cardiology | DX: I25.10 Atherosclerotic heart disease of native coronary artery without angina pectoris (principal); Z95.5 Presence of coronary angioplasty implant and graft | CPT/HCPCS: G0422; G0423 ==

== ENCOUNTER 2024-11-12 08:53 | Outpatient (RCR) | payer MEDICARE, OTHER, SELFPAY | END 2024-11-12 23:59 | disposition home or self-care (01) | LOC: CRHB 08:53 | PROVIDERS: ATTENDING PHYSICIAN Nuclear Medicine Nuclear Cardiology | DX: I25.10 Atherosclerotic heart disease of native coronary artery without angina pectoris (principal); Z95.5 Presence of coronary angioplasty implant and graft | CPT/HCPCS: G0422; G0423 ==

== ENCOUNTER 2024-12-15 09:45 | Outpatient (RCR) | payer MEDICARE, OTHER, SELFPAY | END 2024-12-16 10:35 | disposition home or self-care (01) | LOC: CRHB 09:45 | PROVIDERS: ATTENDING PHYSICIAN Nuclear Medicine Nuclear Cardiology | DX: I25.10 Atherosclerotic heart disease of native coronary artery without angina pectoris (principal); Z95.5 Presence of coronary angioplasty implant and graft | CPT/HCPCS: G0422; G0423 ==

== ENCOUNTER → 2025-02-12 13:50 | Outpatient (REF) | payer MEDICARE, OTHER, SELFPAY ==
[2025-02-12 14:50] LABS: Hematocrit 41.9 % (39.0-52.0); Hemoglobin 14.3 g/dL (13.0-18.0); Mean Corp Hgb Conc. 34.1 g/dL (33.0-37.0); Mean Corpuscular Volume 94.2 fL (80.0-94.0); Nucleated Red Blood Cells % 0 % (-); Platelet Count 181 10^3/uL (130-400); Red Cell Dist. Width 12.1 % (11.5-14.5)
[2025-02-12 15:13] LABS: ALT (SGPT) 25 U/L (0-50); AST (SGOT) 23 U/L (17-59); Albumin 4.1 g/dl (3.5-5.0); Alkaline Phosphatase 76 U/L (38-126); Blood Urea Nitrogen 29 mg/dl (9-20); Calcium 9.4 mg/dl (8.4-10.2); Carbon Dioxide 28 mmol/L (22-30); Chloride 106 mmol/L (98-107); Glucose 102 mg/dl (70-99); Potassium 4.5 mmol/L (3.5-5.1); Sodium 139 mmol/L (135-145); Total Protein 7.0 g/dl (6.3-8.2); eGFR > 60.00
== END ==
LOC: REG 13:50
PROVIDERS: ATTENDING PHYSICIAN Nuclear Medicine Nuclear Cardiology; FAMILY PHYSICIAN Family Medicine
DX: R06.02 Shortness of breath (principal)
CPT/HCPCS: 36415; 80053; 85025